=== PATIENT | male | born 1980 | race Two or more races ===

== ENCOUNTER 2017-04-25 01:32 | Emergency (ER) | payer OTHER, MEDICAID ==
[~2017-04-25] VITALS: Ht 175.3 cm; Wt 85.7 kg
--- NOTE | 2017-04-25 01:40 | NUR ---
To bed 2 a 36 yo male patient bb lapd for left shoulder dislocation. vss. nad noted. nondiaphoretic. distal cms intact. comfort measures rendered.
[2017-04-25] MEDS ORDERED: HYDROMORPHONE 1 MG/1 ML DISP.SYRIN ONE (02:12)
[2017-04-25] MEDS: HYDROMORPHONE 1 MG/1 ML DISP.SYRIN IM ONE (02:16)
[2017-04-25] MEDS: PROPOFOL 200 MG/20 ML VIAL IV ONE (03:05)
[2017-04-25] MEDS ORDERED: PROPOFOL 20 ML IV ONE (03:22)
--- NOTE | 2017-04-25 03:25 | NUR ---
Started a saline lock on the rwrist g22.
[2017-04-25] MEDS: PROPOFOL 1,000 MG/100 ML BOTTLE IV ONE (03:30)
--- NOTE | 2017-04-25 03:39 | NUR ---
Dr Lopez at bedside for close reduction of the dislocated left shoulder.
--- NOTE | 2017-04-25 03:48 | NUR ---
xr at bedside.
[2017-04-25] MEDS ORDERED: FENTANYL PF 100MCG/2ML AMPUL ONE (03:53)
[2017-04-25] MEDS ORDERED: ETOMIDATE 2 MG/ML VIAL ONE (03:53)
[2017-04-25] MEDS: FENTANYL PF 100MCG/2ML AMPUL IV ONE (04:02)
--- NOTE | 2017-04-25 04:39 | NUR ---
patient back from cat scan. patient is alert and responsive. vss. nad noted. ongoing monitoring.
[2017-04-25] MEDS ORDERED: KETOROLAC TROMETHAMINE INJ 30 MG/ML VIAL ONE (05:30)
[2017-04-25] MEDS: KETOROLAC TROMETHAMINE INJ 30 MG/ML VIAL IV ONE (05:35)
[2017-04-25] MEDS: ETOMIDATE 2 MG/ML VIAL IV ONE (05:36)
--- NOTE | 2017-04-25 05:38 | NUR ---
IV removed. Catheter intact and site benign. Pressure and 4x4 applied to site. No bleeding noted. Patient discharged to police custody in stable condition. Written and verbal after care instructions given. Patient verbalizes understanding of instruction. Patient is ambulatory with steady gait. Nad noted. vss. No further complaints.
[2017-04-25 05:41] VITALS: BP 128/87
== END 2017-04-25 05:42 ==
LOC: ER 01:33
DX: S43.082A Other subluxation of left shoulder joint, initial encounter (principal); Y04.0XXA Assault by unarmed brawl or fight, initial encounter; Y93.89 Activity, other specified; Y92.89 Other specified places as the place of occurrence of the external cause; Y99.8 Other external cause status
CPT/HCPCS: 73030-TC; 73200-TC; A4606; J1170; J1885; J2704; J3010; J3490; Z7610

== ENCOUNTER 2017-12-15 15:19 | Emergency (ER) | payer OTHER, MEDICAID ==
[~2017-12-15] VITALS: Ht 175.3 cm; Wt 86.2 kg
[2017-12-15 15:19] VITALS: BP 122/95
[2017-12-15] MEDS ORDERED: IBUPROFEN 600 MG TABLET PO ONE ×2 (17:16→17:30)
[2017-12-15] MEDS ORDERED: ACETAMINOPHEN ES 500 MG TABLET ONE (17:16)
[2017-12-15] MEDS ORDERED: ACETAMINOPHEN ES 500 MG TABLET PO ONE (17:30)
== END 2017-12-15 18:19 ==
LOC: ER 15:20
DX: S43.082A Other subluxation of left shoulder joint, initial encounter (principal); W22.8XXA Striking against or struck by other objects, initial encounter; Y93.89 Activity, other specified; Y92.89 Other specified places as the place of occurrence of the external cause; Y99.8 Other external cause status
CPT/HCPCS: 73030; 99284; A4606; Z7610

== ENCOUNTER 2018-01-06 10:56 | Emergency (ER) | payer OTHER ==
[~2018-01-06] VITALS: Ht 175.3 cm; Wt 88.5 kg
--- NOTE | 2018-01-06 11:00 | NUR ---
KOBI 30 + PROMOTIONAL REPRESENTATIVE FROM LONGTERM, C/O PALIPATIONS: ADMITS TO TAKING 4 PILLS FROM ANOTHER INMATE "THAT ARE LIKE METH." PATIENT HAS A SLING ON LEFT ARM FROM PREVIOUS LEFT SHOULDER DISLOCATION. 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 A/OX 3, BREATHING EVEN AND UNLABORED. NO SOB, NAD, VITALS STABLE. SAFETY AND COMFORT MEASURES IN PLACE. AWAITING MD ORDERS.
[2018-01-06] MEDS ORDERED: LORAZEPAM 1 MG TABLET ONE (11:15)
[2018-01-06] MEDS ORDERED: IBUPROFEN 600 MG TABLET PO ONE ×2 (11:15→11:30)
--- NOTE | 2018-01-06 11:21 | NUR ---
MEDICATED PATIENT PER MD ORDERS.
[2018-01-06] MEDS ORDERED: LORAZEPAM 1 MG TABLET PO ONE (11:30)
--- NOTE | 2018-01-06 13:05 | NUR ---
MEDICALLY CLEARED FOR BOOKING. PT D/C TO [facility] IN STABLE CONDITION. PT PROVIDED W/ SHOULDER SLING.
[2018-01-06 13:06] VITALS: BP 133/76
== END 2018-01-06 13:08 ==
LOC: ER 10:57
DX: M25.512 Pain in left shoulder (principal); F19.10 Other psychoactive substance abuse, uncomplicated; Z96.612 Presence of left artificial shoulder joint; F41.9 Anxiety disorder, unspecified
CPT/HCPCS: 73030; 80305; 93005; 99285; A4606; Z7610